=== PATIENT | female | born 1985 ===

== ENCOUNTER 2019-04-03 05:30 | Inpatient (IN) | payer OTHER ==
[~2019-04-03] VITALS: Ht 162.6 cm; Wt 77.1 kg
[2019-04-03] MEDS ORDERED: PRENATAL TABLE1 EACH PO (06:51)
== END 2019-04-06 11:46 | disposition home or self-care (01) | DRG 788 ==
LOC: LDR 05:30 → OB/GYN 04-04 07:26
PROVIDERS: ADMIT Obstetrics & Gynecology
PROC: 3E0P7VZ Introduction of Hormone into Female Reproductive, Via Natural or Artificial Opening (ICD-10-PCS; 2019-04-03)
PROC: 3E033VJ Introduction of Other Hormone into Peripheral Vein, Percutaneous Approach (ICD-10-PCS; 2019-04-03)
PROC: 4A1HXCZ Monitoring of Products of Conception, Cardiac Rate, External Approach (ICD-10-PCS; 2019-04-03)
PROC: 10D00Z1 Extraction of Products of Conception, Low, Open Approach (ICD-10-PCS; principal; 2019-04-03 21:15)
DX: O82 Encounter for cesarean delivery without indication (principal); O62.0 Primary inadequate contractions; Z3A.40 40 weeks gestation of pregnancy; Z37.0 Single live birth